=== PATIENT | female | born 1965 | race Caucasian/White ===

== ENCOUNTER 2020-06-27 14:36 | Emergency (ER) | payer BC, OTHER ==
[~2020-06-27] VITALS: Ht 165 cm; Wt 64.4 kg
--- NOTE | 2020-06-27 14:45 | NUR ---
DR YEPEZ REPORTS NO NEED TO ACTIVATE DUE TO THE FACT THAT PT SYMPTOMS HAVE RESOLVED.
[2020-06-27 15:12] LABS: ALBUMIN 4.5 GM/DL (3.2-4.5); CHLORIDE 103 MMOL/L (98-107); POTASSIUM 3.4 MMOL/L (3.6-5.0); SODIUM 140 MMOL/L (135-145)
[2020-06-27 15:13] LABS: BASOPHILS % (AUTO) 0 % (0-10); CALCIUM 9.4 MG/DL (8.5-10.1); EOSINOPHILS # (AUTO) 0.1 10^3/uL (0.0-0.3); EOSINOPHILS % (AUTO) 1 % (0-10); HEMATOCRIT 42 % (35-52); HEMOGLOBIN 14.5 G/DL (11.5-16.0); LYMPHOCYTES % (AUTO) 46 % (12-44); MEAN CORPUSCULAR HEMOGLOBIN 34 PG (25-34); MEAN CORPUSCULAR HGB CONC 35 G/DL (32-36); MEAN CORPUSCULAR VOLUME 98 FL (80-99); MEAN PLATELET VOLUME 9.1 FL (7.4-10.4); MONOCYTES # (AUTO) 0.4 X 10^3 (0.0-1.0); MONOCYTES % (AUTO) 6 % (0-12); NEUTROPHILS # (AUTO) 3.1 X 10^3 (1.8-7.8); NEUTROPHILS % (AUTO) 47 % (42-75); PLATELET COUNT 305 10^3/uL (130-400); WHITE BLOOD COUNT 6.6 10^3/uL (4.3-11.0)
[2020-06-27 15:14] LABS: GLUCOSE 140 MG/DL (70-105)
[2020-06-27 15:15] LABS: TOTAL PROTEIN 7.5 GM/DL (6.4-8.2)
[2020-06-27 15:16] LABS: BILIRUBIN,TOTAL 0.6 MG/DL (0.1-1.0); CARBON DIOXIDE 27 MMOL/L (21-32)
[2020-06-27 15:18] LABS: ALKALINE PHOSPHATASE 50 U/L (40-136); CREATININE SERUM 0.78 MG/DL (0.60-1.30); GFR ESTIMATED > 60
[2020-06-27 15:19] LABS: BUN/CREATININE RATIO 14
[2020-06-27 15:21] LABS: ALANINE AMINOTRANSFERASE 14 U/L (0-55)
[2020-06-27 15:22] LABS: FIBRIN DEGRADATION PRODUCTS <= 0.27 UG/ML (0.00-0.49); PARTIAL THROMBOPLASTIN TIME 32 SEC (24-35); PROTHROMBIN TIME PATIENT 13.2 SEC (12.2-14.7)
--- NOTE | 2020-06-27 15:24 | Diagnostic Imaging Report ---
INDICATION: Blurred vision and speech difficulty. TIME OF EXAM: 03:22 p.m. COMPARISON: No prior studies are available for comparison. The heart size is normal. The pulmonary vascularity is unremarkable. The lungs are clear. No infiltrate, effusion or pneumothorax is detected. IMPRESSION: No acute cardiopulmonary process is detected. Dictated by: Dictated on workstation # [id number]
--- NOTE | 2020-06-27 15:53 | Diagnostic Imaging Report ---
PROCEDURE: CT head wo r/o stroke. TECHNIQUE: Multiple contiguous axial images were obtained through the brain without the use of intravenous contrast. Auto Exposure Controls were utilized during the CT exam to meet ALARA standards for radiation dose reduction. INDICATION: Blurred vision and difficulty with speech. COMPARISON: No prior studies are available for comparison. FINDINGS: Ventricles and sulci are within normal limits. No sulcal effacement or midline shift is identified. No acute intra-axial or extra-axial hemorrhage is detected. Cisterns are patent. Visualized paranasal sinuses are clear. IMPRESSION: No acute intracranial process is detected. Dictated by: Dictated on workstation # [id number]
--- NOTE | 2020-06-27 16:38 | NUR ---
PT RESTING COMFORTABLY IN COT. PT UPDATED BY DR YEPEZ ABOUT ORDER FOR CT ANGIO. PT REPORTS SHE HAS BEEN ABLE TO UPDATE HER VIA TEXT AND HAS NO NEW NEEDS AT THIS TIME.
[2020-06-27] MEDS ORDERED: HOLD METFORMIN - RECEIVED CONTRAST 20 ML VIAL IV SCH (16:45)
[2020-06-27] MEDS ORDERED: NS 100 ML (IVPB) BAG IV ONE (16:45)
[2020-06-27] MEDS ORDERED: IOHEXOL 350 MG/ML 100 ML (OMNIPAQUE 350) VIAL IV ONE (16:45)
--- NOTE | 2020-06-27 17:11 | Diagnostic Imaging Report ---
PROCEDURE: CT angiography of the head and CT angiography of the neck with and without contrast. TECHNIQUE: Contiguous noncontrast images were obtained from the skull base through the vertex. After intravenous contrast administration, helical CT angiography of the neck was performed. Source data was reformatted into 3D MIP projections. Delayed post contrast acquisition was also obtained. Auto Exposure Controls were utilized during the CT exam to meet ALARA standards for radiation dose reduction. INDICATION: Speech difficulty and visual disturbance. FINDINGS: CTA neck: There is a normal three-vessel branching pattern arising from the aortic arch. Carotid and vertebral arteries are widely patent through the neck without evidence of stenosis or occlusion. No intimal abnormality or filling defect is identified. There is no evidence of pseudoaneurysm. No abnormal contrast extravasation is seen. Subcentimeter lucencies are seen in the right lobe of the thyroid gland and are likely incidental. CTA head: Anterior, middle and posterior cerebral arteries demonstrate normal opacification. No aneurysm or vascular malformation is identified. There is no evidence of filling defect or occlusion. No stenosis is identified. There is no abnormal contrast enhancement. IMPRESSION: No evidence of great vessel abnormality in the head or neck. No filling defect, stenosis or occlusion is identified. Dictated by: Dictated on workstation # [id number]
[2020-06-27] MEDS ORDERED: ASPIRIN 325 MG (5 GR) TABLET PO ONE (18:00)
--- NOTE | 2020-06-27 18:04 | ED Neurological Problem ---
General Chief Complaint: Neuro-Stroke Like Symptoms Stated Complaint: BLURRED VISION;SLURRED SPEECH Nursing Triage Note: PT PRESENTS TO ED WITH COMPLAINTS OF AN EPISODE OF BLURRED VISION AND DIFFICULTY WITH SPEECH APROX 20 MINUTES METAL SPINNER WHEN SITTING DOWN TO EAT AT [employer]. PT REPORTS HER S/S HAVE MOSTY RESOLVED AND HER VISION IS NOW NORMAL FOR HER. Nursing Sepsis Screen: No Definite Risk Source: patient Exam Limitations: no limitations History of Present Illness Date Seen by Provider: Jun 27, 2020 Time Seen by Provider: 14:38 Initial Comments This 55-year-old woman presents to the emergency room by private vehicle with concerns about stroke like symptoms. She was driving through the area on [place] way [place] and stopped for a meal when she suddenly developed a change in vision and expressive and receptive aphasia. She could not appropriately read the words in front of her and could not comprehensibly communicate to her . The episode occurred about 20 minutes prior to arrival and lasted about 5 minutes. She had headache at the time which has since resolved along with the neurologic deficits. She has no history of stroke or TIA. She takes no blood thinning medications. Allergies and Home Medications Allergies Uncoded Allergies: Sunscreen/lotions (Allergy, Mild, Rash, 06/27/20) Patient Home Medication List Home Medication List Reviewed: Yes Review of Systems Review of Systems Constitutional: no symptoms reported Eyes: No Symptoms Reported Ears, Nose, Mouth, Throat: no symptoms reported Respiratory: no symptoms reported Cardiovascular: no symptoms reported Gastrointestinal: no symptoms reported Genitourinary: no symptoms reported : No Musculoskeletal: no symptoms reported Skin: no symptoms reported Psychiatric/Neurological: See HPI Endocrine: No Symptoms Reported Hematologic/Lymphatic: No Symptoms Reported Past Astbhrp-Ceouiv-Ubbkfb Hx Past Med/Social Hx: Reviewed and Corrections made Patient Social History Alcohol Use: Occasionally Uses Recreational Drug Use: No Smoking Status: Never a Smoker Recent Foreign Travel: No Contact w/Someone Who Travel: No Recent Infectious Disease Expo: No Recent Hopitalizations: No Physical Abuse: No Sexual Abuse: No Mistreated: No Fear: No Seasonal Allergies Seasonal Allergies: No Past Medical History Surgeries: Yes (MELANOMA SKIN CA REMOVAL, 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 oz. 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 as tested, no motor/sensory deficits, alert, normal mood/affect, oriented x 3 Crainal Nerves: normal hearing, normal speech, PERRL Coordination/Gait: normal finger to nose (normal heel to scruggs), normal gait Motor/Sensory: no motor deficit, no sensory deficit Skin: normal color, warm/dry Stroke NIH Stroke Scale Assessment Select: Initial Level of Consciousness: 0=Alert (0), Level of Consciousness- Questions: 0=Answers both month/age (0), LOC Commands: 0=Performs both tasks (0), Visual Manning: 0=No visual loss (0), Facial Movement (Facial Paresis): 0=Normal symmetrical mnt (0), Motor Function-Arms Right: 0=No drift (0), Motor Function-Arms Left: 0=No drift (0), Motor Function-Legs Right: 0=No drift (0), Motor Function-Legs Left: 0=No drift (0), Limb Ataxia: 0=Absent (0), Sensory: 0=Normal:no loss (0), Best Language: 0=No aphasia (0), Dysarthria: 0=Normal (0), Extinction & Inattention: 0=No abnormality (0), Total: 0 Progress/Results/Core Measures Results/Orders Lab Results Laboratory Tests Test 06/27/20 14:42 06/27/20 14:43 Range/Units White Blood Count 6.6 4.3-11.0 10^3/uL Red Blood Count 4.30 L 4.35-5.85 10^6/uL Hemoglobin 14.5 11.5-16.0 G/DL Hematocrit 42 35-52 % Mean Corpuscular Volume 98 80-99 FL Mean Corpuscular Hemoglobin 34 25-34 PG Mean Corpuscular Hemoglobin Concent 35 32-36 G/DL Red Cell Distribution Width 13.2 10.0-14.5 % Platelet Count 305 130-400 10^3/uL Mean Platelet Volume 9.1 7.4-10.4 FL Neutrophils (%) (Auto) 47 42-75 % Lymphocytes (%) (Auto) 46 H 12-44 % Monocytes (%) (Auto) 6 0-12 % Eosinophils (%) (Auto) 1 0-10 % Basophils (%) (Auto) 0 0-10 % Neutrophils # (Auto) 3.1 1.8-7.8 X 10^3 Lymphocytes # (Auto) 3.0 1.0-4.0 X 10^3 Monocytes # (Auto) 0.4 0.0-1.0 X 10^3 Eosinophils # (Auto) 0.1 0.0-0.3 10^3/uL Basophils # (Auto) 0.0 0.0-0.1 10^3/uL Prothrombin Time 13.2 12.2-14.7 SEC INR Comment 1.0 0.8-1.4 Activated Partial Thromboplast Time 32 24-35 SEC D-Dimer <= 0.27 0.00-0.49 UG/ML Sodium Level 140 135-145 MMOL/L Potassium Level 3.4 L 3.6-5.0 MMOL/L Chloride Level 103 98-107 MMOL/L Carbon Dioxide Level 27 21-32 MMOL/L Anion Gap 10 5-14 MMOL/L Blood Urea Nitrogen 11 7-18 MG/DL Creatinine 0.78 0.60-1.30 MG/DL Estimat Glomerular Filtration Rate > 60 BUN/Creatinine Ratio 14 Glucose Level 140 H 70-105 MG/DL Calcium Level 9.4 8.5-10.1 MG/DL Corrected Calcium 9.0 8.5-10.1 MG/DL Total Bilirubin 0.6 0.1-1.0 MG/DL Aspartate Amino Transf (AST/SGOT) 23 5-34 U/L Alanine Aminotransferase (ALT/SGPT) 14 0-55 U/L Alkaline Phosphatase 50 40-136 U/L Troponin I < 0.028 <0.028 NG/ML Total Protein 7.5 6.4-8.2 GM/DL Albumin 4.5 3.2-4.5 GM/DL Glucometer 133 H 70-110 MG/DL My Orders Orders - VALENCIA YEPEZ MD Cbc With Automated Diff (06/27/20 15:02) Protime With Inr (06/27/20 15:02) Partial Thromboplastin Time (06/27/20 15:02) Comprehensive Metabolic Panel (06/27/20 15:02) Fibrin Degradation Products (06/27/20 15:02) Troponin I (06/27/20 15:02) Ua Culture If Indicated (06/27/20 15:02) Chest 1 View, Ap/Pa Only (06/27/20 15:02) Ekg Tracing (06/27/20 15:02) Accucheck Stat ONCE (06/27/20 15:02) Ed Iv/Invasive Line Start (06/27/20 15:02) Ed Iv/Invasive Line Start (06/27/20 15:02) Vital Signs Stroke Patient Q15M (06/27/20 15:02) Ct Head Wo-R/O Stroke (06/27/20 15:02) O2 (06/27/20 15:02) Intake & Output 06,14,22 (06/27/20 15:02) Monitor-Rhythm Ecg Trace Only (06/27/20 15:02) Dysphagia Screening Tool (06/27/20 15:02) Post Thrombolytic Adminstratio (06/27/20 15:02) Ct Angio Head/Neck (06/27/20 16:03) Iohexol Injection (Omnipaque 350 Mg/Ml 1 (06/27/20 16:45) Received Contrast (Hold Metformin- Contr (06/27/20 16:45) Ns (Ivpb) (Sodium Chloride 0.9% Ivpb Bag (06/27/20 16:45) Aspirin Tablet (Aspirin Tablet) (06/27/20 18:00) Medications Given in ED Current Medications Medications Dose Ordered Sig/Emma Route Start Time Stop Time Status Last Admin Dose Admin Aspirin 325 mg ONCE ONCE PO 06/27/20 18:00 06/27/20 18:01 DC 06/27/20 18:10 325 MG Iohexol 75 ml ONCE ONCE IV 06/27/20 16:45 06/27/20 16:46 DC 06/27/20 17:05 75 ML Sodium Chloride 100 ml ONCE ONCE IV 06/27/20 16:45 06/27/20 16:46 DC 06/27/20 17:05 100 ML Vital Signs/I&O 06/27/20 06/27/20 14:45 18:12 Temp 36.8 Pulse 77 71 Resp 18 16 B/P (MAP) 141/96 (111) 121/73 Pulse Ox 98 98 Blood Pressure Mean: 111 Progress Progress Note : Progress Note Patient was promptly seen and examined. She had no neurologic deficits upon assessment. Stroke workup was pursued but stroke activation was not paged as her NIH stroke score was zero. Noncontrast CT showed no abnormalities. Case was discussed with Dr. Guzman, stroke neurologist at [facility]. He recommended proceeding with CT angiogram of the head and neck which was also unremarkable. Patient was given aspirin after dysphagia screening. She was then discharged home to pursue outpatient workup. Patient elected to forego traveling to the [place] and returned home to start on outpatient follow-up and assessment. Initial ECG Impression Date: Jun 27, 2020 Initial ECG Impression Time: 14:34 Initial ECG Rate: 91 Initial ECG Rhythm: Normal Sinus Initial ECG Intervals: Normal Initial ECG Impression: Normal Comment Normal sinus rhythm with no ST elevation or depression. No abnormal intervals or axis deviation. Diagnostic Imaging Diagonstic Imaging: CT Plain Films/CT/US/NM/MRI: head Comments NAME: DEMETRICE TELLEZ [facility] REC#: [id number] PT STATUS: REG ER : 1965 PHYSICIAN: VALENCIA YEPEZ MD ADMIT DATE: 06/27/20/ER Signed Date of Exam:06/27/20 CT HEAD WO-R/O STROKE PROCEDURE: CT head wo r/o stroke. TECHNIQUE: Multiple contiguous axial images were obtained through the brain without the use of intravenous contrast. Auto Exposure Controls were utilized during the CT exam to meet ALARA standards for radiation dose reduction. INDICATION: Blurred vision and difficulty with speech. COMPARISON: No prior studies are available for comparison. FINDINGS: Ventricles and sulci are within normal limits. No sulcal effacement or midline shift is identified. No acute intra-axial or extra-axial hemorrhage is detected. Cisterns are patent. Visualized paranasal sinuses are clear. IMPRESSION: No acute intracranial process is detected. Dictated by: Dictated on workstation # [id number] Dict: 06/27/20 1546 Trans: 06/27/20 1555 AS6 [id number] Interpreted by: ZACH LARSON MD Electronically signed by: ZACH LARSON MD 06/27/20 1555 Reviewed: Reviewed by Me Diagonstic Imaging: CT Plain Films/CT/US/NM/MRI: other (angiogram head and neck) Comments NAME: DEMETRICE TELLEZ [facility] REC#: [id number] PT STATUS: REG ER : 1965 PHYSICIAN: VALENCIA YEPEZ MD ADMIT DATE: 06/27/20/ER Signed Date of Exam:06/27/20 CT ANGIO HEAD/NECK PROCEDURE: CT angiography of the head and CT angiography of the neck with and without contrast. TECHNIQUE: Contiguous noncontrast images were obtained from the skull base through the vertex. After intravenous contrast administration, helical CT angiography of the neck was performed. Source data was reformatted into 3D MIP projections. Delayed post contrast acquisition was also obtained. Auto Exposure Controls were utilized during the CT exam to meet ALARA standards for radiation dose reduction. INDICATION: Speech difficulty and visual disturbance. FINDINGS: CTA neck: There is a normal three-vessel branching pattern arising from the aortic arch. Carotid and vertebral arteries are widely patent through the neck without evidence of stenosis or occlusion. No intimal abnormality or filling defect is identified. There is no evidence of pseudoaneurysm. No abnormal contrast extravasation is seen. Subcentimeter lucencies are seen in the right lobe of the thyroid gland and are likely incidental. CTA head: Anterior, middle and posterior cerebral arteries demonstrate normal opacification. No aneurysm or vascular malformation is identified. There is no evidence of filling defect or occlusion. No stenosis is identified. There is no abnormal contrast enhancement. IMPRESSION: No evidence of great vessel abnormality in the head or neck. No filling defect, stenosis or occlusion is identified. Dictated by: Dictated on workstation # [id number] Dict: 06/27/20 1702 Trans: 06/27/20 1714 [facility] [id number] Interpreted by: TRUE MORA MD Electronically signed by: TRUE MORA MD 06/27/20 1714 Diagonstic Imaging: Xray Plain Films/CT/US/NM/MRI: chest Comments NAME: DEMETRICE TELLEZ [facility] REC#: [id number] PT STATUS: REG ER : 1965 PHYSICIAN: VALENCIA YEPEZ MD ADMIT DATE: 06/27/20/ER Signed Date of Exam:06/27/20 CHEST 1 VIEW, AP/PA ONLY INDICATION: Blurred vision and speech difficulty. TIME OF EXAM: 03:22 p.m. COMPARISON: No prior studies are available for comparison. The heart size is normal. The pulmonary vascularity is unremarkable. The lungs are clear. No infiltrate, effusion or pneumothorax is detected. IMPRESSION: No acute cardiopulmonary process is detected. Dictated by: Dictated on workstation # [id number] Dict: 06/27/20 1520 Trans: 06/27/20 1549 AS6 [id number] Interpreted by: ZACH LARSON MD Electronically signed by: ZACH LARSON MD 06/27/20 1549 Departure Impression Primary Impression: Expressive aphasia Additional Impressions: Receptive aphasia Vision changes Disposition: 01 HOME, SELF-CARE Condition: Improved Departure-Patient Inst. Decision time for Depature: 18:03 Patient Instructions: Transient Ischemic Attack (DC) Add. Discharge Instructions: Your symptoms may be related to TIA. Please follow-up with your primary care provider soon as possible. Until then take aspirin 325 milligrams daily. Always immediately present to the nearest hospital if you have any symptoms of stroke which might include confusion, sudden vision changes, facial drooping, speech difficulties, or numbness or weakness of an extremity. All discharge instructions reviewed with patient and/or family. Voiced understanding. VALENCIA YEPEZ MD Jun 27, 2020 18:04
[2020-06-27 18:12] VITALS: BP 121/73
== END 2020-06-27 18:12 | disposition home or self-care (01) ==
LOC: ER 14:38
DX: F80.2 Mixed receptive-expressive language disorder (principal); H53.9 Unspecified visual disturbance; Z85.828 Personal history of other malignant neoplasm of skin
CPT/HCPCS: 36415; 70450; 70496; 70498; 71045; 80053; 82962; 84484; 85025; 85379; 85610; 85730; 93005; 93041